=== PATIENT | male | born 1940 | race Caucasian/White ===

== ENCOUNTER 2018-01-09 19:38 | Inpatient (IN) | payer OTHER ==
[2018-01-09] MEDS ORDERED: VANCOMYCIN 1 GM/250 ML BAG ONE (20:54)
[2018-01-09] MEDS ORDERED: NA CHLORIDE 0.9% 1,000 ML ONE (20:54)
--- NOTE | 2018-01-09 21:16 | RAD REPORT ---
EXAM DESCRIPTION: RAD - Chest Single View - 01/09/2018 8:42 pm CLINICAL HISTORY: Fever, foot wound COMPARISON: April 2017 TECHNIQUE: AP portable chest image was obtained 2040 hours . FINDINGS: No focal mass or consolidation. Lung parenchyma is prominent but not clearly different. Va sculature is not clearly different. Heart size is upper normal and stable. No measurable pleural effu kristen and no pneumothorax. No gross bony abnormality seen. No acute aortic findings suspected. IMPRESSION: Mild chronic interstitial lung disease similar to comparison. No focal pneumonia identif iable.
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
[2018-01-09 21:43] LABS: Urine Blood NEGATIVE (NEG); Urine Glucose NEGATIVE (NEG); Urine Protein 1+ (NEG)
[2018-01-09 21:49] LABS: Urine Bacteria <20 /HPF (NONE SEEN); Urine Culture Reflex Order NOT NEEDED; Urine RBC <5 /HPF (NONE SEEN)
[2018-01-09 21:59] LABS: Absolute Lymphocytes (CBC) 0.7 K/uL (0.7-4.9); Absolute Monocytes 1.5 K/uL (0.1-1.3); Absolute Neutrophil 16.2 K/uL (1.8-8.0); Basophils % 0.1 % (0-1.3); Hematocrit 34.4 % (39.6-49.0); Lymphocytes % 3.9 % (15.3-44.8); MCH 29.4 pg (27.0-35.0); MCV 86.5 fL (80-100); MPV 10.3 fL (7.6-11.3); Monocytes % 8.3 % (3.3-12.3); RBC Red Blood Cell Count 3.98 M/uL (4.33-5.43)
[2018-01-09 22:04] LABS: Protime INR 1.07
[2018-01-09 22:10] LABS: Blood Morphology Comment NOT SEEN (NOT SEEN); Platelet Estimate ADEQ
[2018-01-09 22:18] LABS: ALT/SGPT 25 U/L (12-78); AST/SGOT 25 U/L (15-37); Albumin 2.9 g/dL (3.4-5.0); Alkaline Phosphatase 67 U/L (45-117); BUN Blood Urea Nitrogen 15 mg/dL (7-18); Bicarbonate 27 mmol/L (21-32); Bilirubin Direct 0.2 mg/dL (0-0.2); Bilirubin Total 0.8 mg/dL (0.2-1.0); CKMB Creatine Kinase MB 2.3 ng/mL (0.3-3.6); Creatine Phosphokinase 146 U/L (39-308); Glucose Level 116 mg/dL (74-106); Lipase 91 U/L (73-393); Potassium 3.5 mmol/L (3.5-5.1); Protein, Total 7.1 g/dL (6.4-8.2); Sodium Level 134 mmol/L (136-145); Troponin (Emerg Dept Use Only) 0.02 ng/mL (0.0-0.045)
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
[2018-01-09] MEDS ORDERED: ONDANSETRON 4 MG/2 ML VIAL IV PRN (23:37)
[2018-01-09] MEDS ORDERED: MORPHINE 2 MG/ML SYR IV PRN (23:37)
[2018-01-09] MEDS ORDERED: ACETAMINOPHEN 500 MG TAB PO PRN (23:37)
[2018-01-10] MEDS: Levofloxacin500mg IV 500 MG/100 ML BAG IV SCH (00:54)
[2018-01-10] MEDS: NA CHLORIDE 0.9% 1,000 ML IV SCH ×2 (00:55→12:11)
[2018-01-10] MEDS ORDERED: CLINDAMYCIN INJ 600 MG in NA CHLORIDE 0.9% 50 ML IV SCH (01:00)
[2018-01-10 05:26] LABS: Absolute Lymphocytes (CBC) 1.3 K/uL (0.7-4.9); Absolute Monocytes 1.6 K/uL (0.1-1.3); Absolute Neutrophil 12.9 K/uL (1.8-8.0); Basophils % 0.2 % (0-1.3); Eosinophils % 0.2 % (0-4.4); Hematocrit 32.7 % (39.6-49.0); Lymphocytes % 8.2 % (15.3-44.8); MCH 29.4 pg (27.0-35.0); MCV 87.9 fL (80-100); MPV 10.1 fL (7.6-11.3); Monocytes % 10.3 % (3.3-12.3); RBC Red Blood Cell Count 3.72 M/uL (4.33-5.43)
[2018-01-10 05:33] LABS: Protime INR 1.14
[2018-01-10 05:34] LABS: Urine Appearance CLEAR; Urine Bilirubin NEGATIVE (NEG); Urine Blood NEGATIVE (NEG); Urine Color YELLOW; Urine Glucose NEGATIVE (NEG); Urine Protein NEGATIVE (NEG); Urine Urobilinogen 0.2 mg/dL (0.2-1.0)
[2018-01-10 05:35] LABS: Urine Microscopic Reflex NO UMIC
[2018-01-10 05:45] LABS: ALT/SGPT 23 U/L (12-78); AST/SGOT 20 U/L (15-37); Albumin 2.7 g/dL (3.4-5.0); Alkaline Phosphatase 64 U/L (45-117); BUN Blood Urea Nitrogen 15 mg/dL (7-18); Bicarbonate 29 mmol/L (21-32); Bilirubin Total 0.8 mg/dL (0.2-1.0); Glucose Level 107 mg/dL (74-106); Magnesium 1.9 mg/dL (1.8-2.4); Phosphorus 3.1 mg/dL (2.5-4.9); Potassium 3.6 mmol/L (3.5-5.1); Protein, Total 6.6 g/dL (6.4-8.2); Sodium Level 135 mmol/L (136-145)
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
[2018-01-10] MEDS ORDERED: LINEZOLID 600 MG IVPB 600 MG/300 ML BAG IV SCH (09:00)
[2018-01-10] MEDS: EZETIMIBE 10 MG TAB PO SCH (09:27)
[2018-01-10] MEDS: NIACIN 500 MG SR TAB PO SCH (09:27)
[2018-01-10] MEDS: DOCUSATE NA 100 MG CAP PO SCH (09:27)
[2018-01-10] MEDS: VANCOMYCIN 1.25 GM in NA CHLORIDE 0.9% 250 ML IVPB SCH ×2 (12:07→21:59)
--- NOTE | 2018-01-10 13:31 | P.PN ---
Subjective Date of Service: 01/10/18 Chief Complaint: Osteomyelitis Patient seen and examined at bedside with RN. Chart reviewed. Case discussed with general surgery. Currently no plans for surgical procedure. Continue IV antibiotics awaiting infectious disease recommendations. Patient has no complaints to offer is well. Review of Systems 10-point ROS is otherwise unremarkable Physical Examination - Vital Signs Temperature: 98.5 F Blood Pressure: 112/53 Pulse: 83 Respirations: 20 Pulse Ox (%): 99 - Physical Exam General: Alert, In no apparent distress HEENT: Atraumatic, PERRLA, EOMI Neck: Supple, JVD not distended Respiratory: Clear to auscultation bilaterally, Normal air movement Cardiovascular: Regular rate/rhythm, Normal S1 S2 Gastrointestinal: Normal bowel sounds, No tenderness Musculoskeletal: Erythema, Tenderness, Warmth Integumentary: Diabetic ulcer (left foot dorsal area on the lateral side) Neurological: Normal speech, Normal tone, Normal affect Lymphatics: No axilla or inguinal lymphadenopathy - Studies Laboratory Data (last 24 hrs) 01/09/18 21:33: PT 12.6 H, INR 1.07, APTT 29.5 01/09/18 21:33: WBC 18.5 H, Hgb 11.7 L, Hct 34.4 L, Plt Count 158 01/09/18 21:33: Sodium 134 L, Potassium 3.5, BUN 15, Creatinine 0.80, Glucose 116 H, Total Bilirubin 0.8, AST 25, ALT 25, Alkaline Phosphatase 67, Lipase 91 Microbiology Data (last 24 hrs): 01/09/18 21:10 Wound - Left Foot Gram Stain - Final Medications List Reviewed: Yes Assessment And Plan - Plan Assessment and plan: 1. Osteomyelitis of the left foot with diabetic Ulcer noted -Wound culture pending -IV vanc and zosyn -ID consulted. Reccs awaiting at this time -Gen Surgery consulted. No surgical procedure at this time -Wound care consulted. 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 Hypoalbuminemia Dispo: Currently awaiting clinical improvement at this time. Will await for infectious disease consult. Continue on IV antibiotics and wound cultures. Discharge Plan: Home Plan to discharge in: 72 Hours - Code Status/Comfort Care Code Status Assessed: Yes Critical Care: No
--- NOTE | 2018-01-10 19:26 | EKG ---
Test Date: 2018-01-09 Test Time: 21:55:26 [employer] Operator: MG MEASUREMENT RESULTS: Intervals: Rate: 101 OH: 164 QRSD: 102 QT: 390 QTc: 505 [place]: P: 56 OH: 164 QRS: 80 T: 31 INTERPRETIVE STATEMENTS: Sinus tachycardia with frequent premature ventricular complexes Incomplete right bundle branch block Borderline ECG Compared to ECG 05/24/2017 18:44:01 Ventricular premature complex(es) now present Incomplete right bundle-branch block now present Sinus rhythm no longer present Prolonged QT interval no longer present Electronically Signed On 01-10-18 19:24:22 CDT by Glen Montelongo
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
[2018-01-10] MEDS ORDERED: D50W 25 GM/50 ML SYRINGE IV PRN (20:59)
[2018-01-10] MEDS ORDERED: GLUCAGON 1 MG/VIAL IM PRN (20:59)
[2018-01-10] MEDS: INSULIN -REGULAR HUMAN 50 UNIT/0.5 ML ML SQ SCH (21:00)
[2018-01-11] MEDS: Levofloxacin500mg IV 500 MG/100 ML BAG IV SCH ×2 (00:22→07:13)
[2018-01-11] MEDS: NA CHLORIDE 0.9% 1,000 ML IV SCH (00:22)
[2018-01-11 04:36] VITALS: O2SAT 99
[2018-01-11 04:39] VITALS: BMI 24.9
[2018-01-11] MEDS ORDERED: LEVOTHYROXINE SOD 0.1 MG TAB PO SCH (06:00)
[2018-01-11] MEDS ORDERED: PANTOPRAZOLE 40MG TABLET PO SCH (06:30)
[2018-01-11] MEDS: INSULIN -REGULAR HUMAN 50 UNIT/0.5 ML ML SQ SCH ×2 (07:30→11:30)
[2018-01-11] MEDS ORDERED: MEDIHONEY 44 ML TOPICAL TUBE TOP SCH (09:00)
[2018-01-11] MEDS: DOCUSATE NA 100 MG CAP PO SCH (09:36)
[2018-01-11] MEDS: EZETIMIBE 10 MG TAB PO SCH (09:36)
[2018-01-11] MEDS: NIACIN 500 MG SR TAB PO SCH (09:36)
[2018-01-11] MEDS: VANCOMYCIN 1.25 GM in NA CHLORIDE 0.9% 250 ML IVPB SCH (09:37)
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
[2018-01-11 14:17] VITALS: BP 156/81; TEMP 98.4
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
[2018-01-12] MEDS ORDERED: Levofloxacin500mg IV 500 MG/100 ML BAG IV SCH (08:00)
== END 2018-01-11 13:45 | disposition home or self-care (01) | DRG 603 ==
LOC: ER 19:38 → ERHOLD 22:47 → 2ND 01-10 00:05
PROVIDERS: ADMIT Hospitalist; ATTEND Hospitalist
DX: L03.116 Cellulitis of left lower limb (principal); E11.621 Type 2 diabetes mellitus with foot ulcer; I10 Essential (primary) hypertension; E03.9 Hypothyroidism, unspecified; E88.09 Other disorders of plasma-protein metabolism, not elsewhere classified; B95.4 Other streptococcus as the cause of diseases classified elsewhere
CPT/HCPCS: 36415; 71045; 80048; 80053; 80076; 80202; 81003; 81015; 82550; 82553; 82962; 83036; 83605; 83690; 83735; 84100; 84145; 84484; 85025; 85610; 85652; 85730; 86140; 87040; 87070; 87077; 87186; 87205; 93005; 96365; 96366; 99285; J3370; J7030

== ENCOUNTER 2019-08-27 10:23 | Inpatient (IN) | payer OTHER ==
[2019-08-27 11:11] LABS: Basophils % 0.3 % (0-1.3); Hematocrit 30.1 % (39.6-49.0); Lymphocytes % 12.9 % (15.3-44.8); MPV 9.5 fL (7.6-11.3); RBC Red Blood Cell Count 3.26 M/uL (4.33-5.43)
[2019-08-27 11:12] LABS: Protime INR 1.02
[2019-08-27 11:27] LABS: Albumin 2.4 g/dL (3.4-5.0); Bilirubin Direct 0.2 mg/dL (0-0.2); Bilirubin Total 0.5 mg/dL (0.2-1.0); Magnesium 2.1 mg/dL (1.8-2.4); Potassium 3.6 mmol/L (3.5-5.1); Protein, Total 6.4 g/dL (6.4-8.2); Troponin (Emerg Dept Use Only) 0.05 ng/mL (0.0-0.045)
--- NOTE | 2019-08-27 11:46 | RAD REPORT ---
EXAM DESCRIPTION: CT - CTHCSPWOC - 08/27/2019 11:30 am CLINICAL HISTORY: Trauma, head and neck injury. syncope, fall COMPARISON: No comparisons TECHNIQUE: Axial 5 mm thick images of the head were obtained. Axial 2 mm thick images of the cervical spine were obtained with sagittal and coronal reconstruction images generated and reviewed. All CT scans are performed using dose optimization technique as appropriate and may include automated exposure control or mA/KV adjustment according to patient size. FINDINGS: CT HEAD WITHOUT CONTRAST: No acute hemorrhage, hydrocephalus or extra-axial collection is identified.Mild generalized brain atr ophy.No areas of brain edema or midline shift. Moderate right frontal scalp hematoma and right PA orb ital soft tissue swelling. Mild nasal bone fracture also seen. Please refer to dedicated CT face exam ination for full details. The paranasal sinuses and mastoids are clear.The calvarium is intact. CT CERVICAL SPINE WITHOUT CONTRAST: No fracture or subluxation.Mild cervical degenerative changes.No prevertebral soft tissues swelling i s identified. IMPRESSION: No acute intracranial or cervical spine findings.
--- NOTE | 2019-08-27 11:48 | RAD REPORT ---
EXAM DESCRIPTION: CT - CTFB CLINICAL HISTORY: TRAUMA Fall, facial trauma pain and pain COMPARISON: No comparisons TECHNIQUE: Axial 2 mm thick images of the face were obtained with sagittal and coronal reconstructio n images. All CT scans are performed using dose optimization technique as appropriate and may include automated exposure control or mA/KV adjustment according to patient size. FINDINGS: Acute mildly angulated nasal bone fracture is seen. There is moderate soft tissue swelling evident.The mandible is intact. Significant right periorbital soft tissue swelling is present.Large right frontal scalp hematoma is s een. No vitreous abnormality detected. No additional facial fracture seen. The paranasal sinuses and mastoids are clear. IMPRESSION: Mildly angulated nasal bone fracture. Significant periorbital soft tissue swelling, greater on the right. Right frontal scalp hematoma.
--- NOTE | 2019-08-27 12:31 | RAD REPORT ---
EXAM DESCRIPTION: RAD - Chest Single View - 08/27/2019 11:49 am CLINICAL HISTORY: syncope Chest pain. COMPARISON: Chest Pa And Lat (2 Views) dated 02/28/2019; Chest Pa And Lat (2 Views) dated 11/09/2018; Chest Pa And Lat (2 Views) dated 07/20/2018; Chest Single View dated 01/09/2018 FINDINGS: Portable technique limits examination quality. The lungs are grossly clear. The heart is mildly prominent size. Old left posterior rib fracture. IMPRESSION: No acute intrathoracic process suspected.
--- NOTE | 2019-08-27 12:34 | RAD REPORT ---
EXAM DESCRIPTION: RAD - Pelvis - 08/27/2019 11:31 am CLINICAL HISTORY: fall COMPARISON: Hip Left 2 View dated 08/27/2019 FINDINGS: Bilateral hip osteoarthritis is present. No fracture, dislocation or AVN.
--- NOTE | 2019-08-27 12:36 | RAD REPORT ---
EXAM DESCRIPTION: RAD - Hip Left 2 View - 08/27/2019 11:31 am CLINICAL HISTORY: PAIN COMPARISON: No comparisons FINDINGS: Mild osteoarthritis affects the left hip. No fracture, dislocation or AVN.
[2019-08-27 12:41] LABS: Urine Blood 1+ (NEG); Urine Glucose NEGATIVE (NEG); Urine Protein 3+ (NEG); Urine Specific Gravity 1.025 (1.005-1.030)
[2019-08-27 12:58] LABS: Urine Amorphous Sediment 1+ /HPF (NONE SEEN); Urine Bacteria 20-50 /HPF (NONE SEEN); Urine Culture Reflex Order REFLEXED; Urine Mucus LIGHT /HPF (NONE SEEN); Urine RBC <5 /HPF (NONE SEEN); Urine Yeast MANY (NONE SEEN)
[2019-08-27 12:59] LABS: Urine Yeast with Hyphae PRESENT
[2019-08-27] MEDS ORDERED: NA CHLORIDE 0.9% 500 ML ONE (12:59)
--- NOTE | 2019-08-27 13:08 | EDPHYS ---
Physician Documentation [facility] Name: Jacob Vega Age: 79 yrs Sex: Male : 1940 Arrival Date: 08/27/2019 Time: 10:24 Bed 20 Private MD: ED Physician James Anne HPI: 08/26 10:51 This 79 yrs old Male presents to ER via Unassigned with complaints of Fall cp Injury, Head Injury With LOC-Adult. 10:54 The patient has experienced syncope, collapsed. Onset: The symptoms/episode cp began/occurred yesterday, approximately 4 episodes. Duration: The patient has had multiple episodes, that last an unknown period of time. Associated injury: Head/face: forehead, right eye, nose and left eye, contusion, swelling, tenderness, Left lower extremity: left hip, pain. Associated signs and symptoms: Pertinent negatives: abdominal pain, chest pain, diaphoresis, diarrhea, seizure, shortness of breath, vomiting, weakness. Historical: - Allergies: 10:40 Lincocin; aa5 - Home Meds: 10:40 levothyroxine 100 mcg oral tab once daily [Active]; Zetia 10 mg Oral tab 1 tab once aa5 daily [Active]; niacin 500 mg oral tab daily [Active]; stool softener twice daily [Active]; Miralax Oral PRN [Active]; midodrine 5 mg oral tab daily [Active]; 10:40 aspirin as needed [Active]; aa5 - PMHx: 10:40 Hypothyroidism; aa5 10:40 Hypotension; aa5 - PSHx: 10:40 Cholecystectomy; aa5 - Immunization history:: Adult Immunizations up to date, Pneumococcal vaccine is up to date, Flu vaccine is up to date. - Immunization history: Last tetanus immunization: unknown. - Social history:: Smoking status: Patient denies any tobacco usage or history of. ROS: 11:00 Constitutional: Negative for body aches, chills, fever, poor PO intake. cp 11:00 ENT: Negative for injury, pain, and discharge. cp 11:00 Eyes: Positive for pain, swelling, visual disturbance, of the left eye. 11:00 Respiratory: Negative for cough, shortness of breath, wheezing. 11:00 Abdomen/GI: Negative for abdominal pain, nausea, vomiting, and diarrhea. 11:00 MS/extremity: Positive for pain, left hip. 11:00 Skin: Negative for cellulitis, rash. 11:00 Neuro: Positive for syncope, Negative for altered mental status, dizziness, headache, weakness. 11:00 All other systems are negative. Exam: 10:59 ECG was reviewed by the Attending Physician. cp 11:03 Constitutional: The patient appears in no acute distress, alert, awake, cp non-diaphoretic, non-toxic, well developed, well nourished. 11:03 Head/face: Noted is ecchymosis, that is moderate, of the right eye and left eye, cp swelling, that is severe, of the right eye, Sinus tenderness, that is mild, is located over the right maxillary sinus. 11:03 Eyes: Periorbital structures: swelling, that is marked, on the , ecchymosis, that is moderate, bilaterally, Pupils: equal, round, and reactive to light and accomodation, Extraocular movements: intact throughout. 11:03 ENT: External ear(s): are unremarkable, Ear canal(s): are normal, clear, TM's: bulging, is not appreciated, bilaterally, erythema, is not appreciated, bilaterally, Nose: External nose: deformity is noted, swelling is noted, bleeding, is not appreciated, no septal hematoma is appreciated, Mouth: Lips: moist, Oral mucosa: pink and intact, moist, Posterior pharynx: is normal, airway is patent. 11:03 Neck: C-spine: C-collar placed in ED, vertebral tenderness, that is mild, appreciated at C6 and C7, crepitus, is not appreciated. 11:03 Chest/axilla: Inspection: normal, Palpation: is normal, no crepitus, no tenderness. 11:03 Cardiovascular: Rate: normal, Rhythm: regular, Edema: is not appreciated, JVD: is not appreciated. 11:03 Respiratory: the patient does not display signs of respiratory distress, Respirations: normal, no use of accessory muscles, no retractions, labored breathing, is not present, Breath sounds: are clear throughout, no decreased breath sounds, no stridor, no wheezing. 11:03 Abdomen/GI: Inspection: abdomen appears normal, Bowel sounds: active, all quadrants, Palpation: abdomen is soft and non-tender, in all quadrants. 11:03 Back: pain, is absent, ROM is normal. 11:03 Musculoskeletal/extremity: Exam is negative for decreased range of motion, deformity, injury. 11:03 Neuro: Orientation: to person, place \T\ time. Mentation: is normal, Cerebellar function: is grossly normal, Motor: moves all fours, strength is normal, Sensation: is normal. Vital Signs: 10:40 BP 163 / 92; Pulse 79; Resp 18 S; Temp 98.0(TE); Pulse Ox 99% on R/A; aa5 11:13 BP 157 / 87; Pulse 75; Resp 18 S; Pulse Ox 100% on R/A; ca1 12:03 BP 159 / 97; Pulse 74; Resp 18 S; Pulse Ox 100% on R/A; ca1 12:40 BP 161 / 96 Supine; Pulse 74; lt1 12:43 BP 104 / 63 Sitting; Pulse 79; lt1 13:30 BP 159 / 97; Pulse 76; Resp 15 S; Pulse Ox 100% on R/A; ca1 Guillaume Coma Score: 10:40 Eye Response: spontaneous(4). Verbal Response: oriented(5). Motor Response: obeys aa5 commands(6). Total: 15. Trauma Score (Adult): 10:40 Eye Response: spontaneous(1); Verbal Response: oriented(1); Motor Response: obeys aa5 commands(2); Systolic BP: > 89 mm Hg(4); Respiratory Rate: 10 to 29 per min(4); Guillaume Score: 15; Trauma Score: 12 MDM: 10:42 Patient medically screened. 11:00 Differential Diagnosis: cardiac arrhythmia, cerebrovascular accident, drug effect, GI cp bleed, vasovagal episode. 13:05 Data reviewed: vital signs, nurses notes, lab test result(s), EKG, radiologic studies, cp CT scan, plain films. 13:05 Test interpretation: by ED physician or midlevel provider: ECG. 13:10 Physician consultation: Rei Duran MD was contacted at 13:05, regarding admission, cp to the telemetry unit. patient's condition. 08/26 10:46 Order name: Basic Metabolic Panel; Complete Time: 11:56 08/26 11:57 Interpretation: Normal except: NA 132; CL 97; BUN 29; CRE 1.49; GFR 46; CA 7.7. 08/26 10:46 Order name: CBC with Diff; Complete Time: 11:56 cp 08/26 11:57 Interpretation: Normal except: RBC 3.26; HGB 10.5; HCT 30.1; MCV 92.3; MCH 32.2; SUSAN% cp 74.7; LYM% 12.9. / 10:46 Order name: LFT's; Complete Time: 11:56 cp 08/26 12:41 Interpretation: Normal except: AST 51; ALB 2.4; GLOB 4.0; A/G 0.6. cp 05/ 10:46 Order name: Magnesium; Complete Time: 11:56 cp 08/26 10:46 Order name: NT PRO-BNP; Complete Time: 11:56 cp 08/26 11:58 Interpretation: Abnormal: NT PRO-BNP 5592. cp 08/26 10:46 Order name: PT-INR; Complete Time: 11:56 cp 08/26 10:46 Order name: Troponin (emerg Dept Use Only); Complete Time: 11:56 cp 08/26 11:57 Interpretation: Abnormal: TROPED 0.05. cp 08/26 10:46 Order name: Urine Microscopic Only; Complete Time: 13:00 cp 08/26 13:00 Interpretation: Normal except: UWBC 10-20; UBACT 20-50. cp / 12:38 Order name: Urine Dipstick--Ancillary (enter results); Complete Time: 12:50 lt1 08/26 13:01 Order name: Urine Culture EDLA 08/26 13:35 Order name: Cortisol EDMS 08/26 13:35 Order name: Thyroid Stimulating Hormone EDLA 08/26 13:35 Order name: CBC with Automated Diff EDMS 08/26 13:35 Order name: CBC with Automated Diff EDMS 08/26 10:46 Order name: XRAY Chest (1 view); Complete Time: 12:40 cp / 12:40 Interpretation: Report review. cp 08/26 10:46 Order name: EKG; Complete Time: 10:47 cp 08/26 10:46 Order name: Cardiac monitoring; Complete Time: 11:32 cp / 10:46 Order name: EKG - Nurse/Tech; Complete Time: 11:32 cp 05/ 10:46 Order name: IV Saline Lock; Complete Time: 11:32 cp 08/26 10:46 Order name: Labs collected and sent; Complete Time: 11:32 cp 08/26 10:46 Order name: CT Facial Bones W/O Con; Complete Time: 11:56 cp 08/26 11:58 Interpretation: Report reviewed. cp 08/26 10:46 Order name: CT Head C Spine; Complete Time: 11:56 cp 08/26 10:46 Order name: XRAY Pelvis; Complete Time: 12:40 cp 08/26 12:40 Interpretation: Report reviewed. cp 08/26 11:23 Order name: Hip Left 2 View; Complete Time: 12:40 EDLA 08/26 12:40 Interpretation: Report reviewed. cp 08/26 13:35 Order name: CONS Pharmacy Consult EDLA 08/26 13:35 Order name: Regular EDLA 08/26 13:35 Order name: Comprehensive Metabolic Panel EDLA 08/26 13:35 Order name: Comprehensive Metabolic Panel EDLA 08/26 10:46 Order name: O2 Per Protocol; Complete Time: 11:32 cp 08/26 10:46 Order name: O2 Sat Monitoring; Complete Time: 11:32 cp 08/26 10:46 Order name: Urine Dipstick-Ancillary (obtain specimen); Complete Time: 12:36 cp 08/26 10:46 Order name: C-Collar; Complete Time: 11:32 cp 08/26 11:56 Order name: Orthostatics; Complete Time: 12:49 cp 08/26 11:56 Order name: Misc. Order: may remove c-collar; Complete Time: 12:40 cp EC:59 Rate is 78 beats/min. Rhythm is regular. KS interval is normal. QRS interval is cp prolonged at 142 msec. QT interval is normal. T waves are Inverted in leads III, V3, V4. Interpreted by me. Reviewed by me. Administered Medications: 12:56 Drug: NS 0.9% 500 ml Route: IV; Rate: 500 ml/hr; Site: right antecubital; ca1 13:38 Follow up: Response: No adverse reaction; IV Status: Completed infusion ca1 Disposition: 13:20 Chart complete. cp 15:06 Co-signature as Attending Physician, James Anne MD. rn Disposition: 08/27/19 13:08 Hospitalization ordered by Rei Duran for Observation. Preliminary diagnosis are Syncope and collapse, Urinary tract infection, site not specified, Fracture of nasal bones. - Bed requested for Telemetry/MedSurg (Inpatient). - Status is Observation. ls4 - Condition is Stable. - Problem is new. - Symptoms have improved. Signatures: Dispatcher [employer] EDMS James Anne MD MD rn Calderon, Audri RN RN aa5 Pantera Stallings PA PA cp Lori eSlf Lisa RN RN ls4 Lizzie Peñaloza RN RN ca1 Corrections: (The following items were deleted from the chart) 11:06 10:40 PMHx: Hypertension; aa5 aa5 11:23 10:47 Hip Right 2 View+RAD.RAD.BRZ ordered. EDMS EDMS 11:58 11:57 Normal except: NA 132; CL 97; BUN 29; CRE 1.49; GFR 46. cp cp 13:48 13:08 Hospitalization Ordered by Rei Duran MD for Observation. Preliminary eb diagnosis is Syncope and collapse; Urinary tract infection, site not specified; Fracture of nasal bones. Bed requested for Telemetry/MedSurg (Inpatient). Status is Observation. Condition is Stable. Problem is new. Symptoms have improved. cp 15:05 13:48 08/27/2019 13:08 Hospitalization Ordered by Rei Duran MD for Observation. ls4 Preliminary diagnosis is Syncope and collapse; Urinary tract infection, site not specified; Fracture of nasal bones. Bed requested for Telemetry/MedSurg (Inpatient). Status is Observation. Condition is Stable. Problem is new. Symptoms have improved. eb
--- NOTE | 2019-08-27 13:08 | ER ---
Nurse's Notes [facility] Name: Jacob Vega Age: 79 yrs Sex: Male : 1940 Arrival Date: 08/27/2019 Time: 10:24 Bed 20 Private MD: Diagnosis: Syncope and collapse;Urinary tract infection, site not specified;Fracture of nasal bones Presentation: 08/26 10:40 Chief complaint: Pt's son states "he passed out at least 4 times yesterday and I think aa5 it's because his blood pressure was changing because I took it lying down and it was like 130 (systolic) and then he sat up and it was registering but when I finally got it to register it was around 70/30". Pt's son states "he fell the first time but he didn't have any injuries the first time, two of the times I was able to catch him and put him down to the floor or the bed". Pt states "one of the times I fell I hit my head on the wall so hard that I made a hole in the wall". Pt denies taking anticoagulants, reports taking ASA as needed. Pt reports taking midodrine at 0700 and at 1000 today. Pt also reports having stress test on 08/17/19 and states "the stress test came out okay according to Dr. Montelongo". Pt c/o face pain and left hip pain. Denies feeling lightheaded or dizzy. Denies chest pain. 10:40 Acuity: LORE 2 aa5 10:40 Care prior to arrival: None. Mechanism of Injury: Fall from standing position. Trauma aa5 event details: Injury occurred in the [facility], Injury occurred: at home. Injury occurred: August 26, 2019. 10:40 Method Of Arrival: Wheelchair aa5 10:40 Coronavirus screen: Proceed with normal triage. Patient denies a cough. Patient denies aa5 shortness of breath or difficulty breathing. Patient denies measured and/or subjective temperature greater than 100.4F prior to today's visit. Patient denies travel on a cruise ship or to a country the [facility] currently lists as an affected area. Patient denies contact with known and/or suspected case of COVID-19. 10:40 Ebola Screen: Patient negative for fever greater than or equal to 101.5 degrees aa5 Fahrenheit, and additional compatible Ebola Virus Disease symptoms. Initial Sepsis Screen: Does the patient meet any 2 criteria? No. Patient's initial sepsis screen is negative. Does the patient have a suspected source of infection? No. Patient's initial sepsis screen is negative. Risk Assessment: Do you want to hurt yourself or someone else? Patient reports no desire to harm self or others. Onset of symptoms was August 26, 2019. Trauma Activation: Alert Physician: ED Physician; Name: ; Notified At: ; Arrived At: Physician: General Surgeon; Name: ; Notified At: ; Arrived At: Physician: Radiology; Name: ; Notified At: ; Arrived At: Physician: Respiratory; Name: ; Notified At: ; Arrived At: Physician: Lab; Name: ; Notified At: ; Arrived At: Historical: - Allergies: 10:40 Lincocin; aa5 - Home Meds: 10:40 levothyroxine 100 mcg oral tab once daily [Active]; Zetia 10 mg Oral tab 1 tab once aa5 daily [Active]; niacin 500 mg oral tab daily [Active]; stool softener twice daily [Active]; Miralax Oral PRN [Active]; midodrine 5 mg oral tab daily [Active]; 10:40 aspirin as needed [Active]; aa5 - PMHx: 10:40 Hypothyroidism; aa5 10:40 Hypotension; aa5 - PSHx: 10:40 Cholecystectomy; aa5 - Immunization history:: Adult Immunizations up to date, Pneumococcal vaccine is up to date, Flu vaccine is up to date. - Immunization history: Last tetanus immunization: unknown. - Social history:: Smoking status: Patient denies any tobacco usage or history of. Screenin:00 Abuse screen: Denies threats or abuse. Denies injuries from another. Nutritional ca1 screening: No deficits noted. Tuberculosis screening: No symptoms or risk factors identified. Fall Risk Fall in past 12 months (25 points). IV access (20 points). Total Sanders Fall Scale indicates Low Risk Score (25-44 pts). Fall prevention measures have been instituted. Side Rails Up X 2 Frequent Obs/Assesments occuring As available Patient and Family Educated on Fall Prevention Program and strategies. Primary Survey: 10:40 NO uncontrolled hemorrhage observed. A: The patient is alert. Airway: patent. aa5 Breathing/Chest: Chest inspection: symmetrical rise and fall of the chest. Circulation: Skin color: pink. Disability Alert. Exposure/Environment: All clothing and personal items were removed. There is no evidence of uncontrolled external bleeding. A warming method has been applied: A warm blanket has been provided to the patient. 12:02 Reassessment Airway Airway Patent Breathing/Chest Respiratory pattern Regular ca1 Respiratory effort Spontaneous Unlabored Chest inspection Symmetrical Circulation Heart rhythm Sinus rhythm Heart tones Present Pulses Palpable Color [place] Temperature Warm Dry Disability Alert. Secondary Survey: 10:40 HEENT: Face Other Swelling and bruising noted to beata periorbital area. aa5 Gastrointestinal: No deficits noted. : No deficits noted. Musculoskeletal: Reports pain in left hip. Assessment: 11:05 General: Appears in no apparent distress. comfortable, Behavior is calm, cooperative, ca1 appropriate for age. Pain: Complains of pain in face, L hip, L shoulder Pain currently is 2 out of 10 on a pain scale. Quality of pain is described as sore. Neuro: Level of Consciousness is awake, alert, obeys commands, Oriented to person, place, time, situation, Appropriate for age. Cardiovascular: Heart tones S1 S2 present Capillary refill < 3 seconds Patient's skin is warm and dry. Rhythm is sinus rhythm. Respiratory: Airway is patent Trachea midline Respiratory effort is even, unlabored, Respiratory pattern is regular, symmetrical, Breath sounds are clear bilaterally. GI: Abdomen is flat, non-distended, Bowel sounds present X 4 quads. Abd is soft and non tender X 4 quads. : No signs and/or symptoms were reported regarding the genitourinary system. EENT: Eyes swelling and bruising, dark purple around both eyes. . Derm: Skin is intact, is healthy with good turgor, Skin is pink, warm \\T\\ dry. Bruising that is bright red, on diaphragm. Musculoskeletal: Circulation, motion, and sensation intact. Capillary refill < 3 seconds. 11:11 Reassessment: X ray at bedside. ca1 12:03 Reassessment: Patient appears in no apparent distress at this time. No changes from ca1 previously documented assessment. Patient and/or family updated on plan of care and expected duration. Pain level reassessed. Patient is alert, oriented x 3, equal unlabored respirations, skin warm/dry/pink. 13:02 Reassessment: Patient appears in no apparent distress at this time. Patient and/or ca1 family updated on plan of care and expected duration. Pain level reassessed. Patient is alert, oriented x 3, equal unlabored respirations, skin warm/dry/pink. PT is on his Ipad. Pending Room assignment. Vital Signs: 10:40 BP 163 / 92; Pulse 79; Resp 18 S; Temp 98.0(TE); Pulse Ox 99% on R/A; aa5 11:13 BP 157 / 87; Pulse 75; Resp 18 S; Pulse Ox 100% on R/A; ca1 12:03 BP 159 / 97; Pulse 74; Resp 18 S; Pulse Ox 100% on R/A; ca1 12:40 BP 161 / 96 Supine; Pulse 74; lt1 12:43 BP 104 / 63 Sitting; Pulse 79; lt1 13:30 BP 159 / 97; Pulse 76; Resp 15 S; Pulse Ox 100% on R/A; ca1 Guillaume Coma Score: 10:40 Eye Response: spontaneous(4). Verbal Response: oriented(5). Motor Response: obeys aa5 commands(6). Total: 15. Trauma Score (Adult): 10:40 Eye Response: spontaneous(1); Verbal Response: oriented(1); Motor Response: obeys aa5 commands(2); Systolic BP: > 89 mm Hg(4); Respiratory Rate: 10 to 29 per min(4); Guillaume Score: 15; Trauma Score: 12 ED Course: 10:24 Patient arrived in ED. as 10:28 Pantera Stallings PA is PHCP. cp 10:28 James Anne MD is Attending Physician. cp 10:40 Arm band placed on Patient placed in an exam room, on a stretcher. aa5 10:46 Lizzie Peñaloza, SAMANTHA is Primary Nurse. ca1 10:56 Initial lab(s) drawn, by me, sent to lab. Inserted saline lock: 20 gauge in right aa5 forearm, using aseptic technique. Blood collected. 11:00 Patient has correct armband on for positive identification. Placed in gown. Bed in low ca1 position. Call light in reach. Side rails up X2. engine monitor on. Pulse ox on. NIBP on. Warm blanket given. 11:01 Rigid cervical collar applied and checked by physician. Patient maintains SpO2 ca1 saturation greater than 95% on room air. Thermoregulation: warm blanket given to patient. 11:04 Triage completed. aa5 11:29 CT Head C Spine In Process Unspecified. EDMS 11:30 CT Facial Bones W/O Con In Process Unspecified. EDMS 11:31 XRAY Pelvis In Process Unspecified. EDMS 11:32 Hip Left 2 View In Process Unspecified. EDMS 11:50 XRAY Chest (1 view) In Process Unspecified. EDMS 12:03 No provider procedures requiring assistance completed. ca1 12:36 Urine Microscopic Only Sent. lt1 13:07 Rei Duran MD is Hospitalizing Provider. cp 13:11 Patient admitted, IV remains in place. ca1 13:53 Report given to SAMANTHA Del Toro. ca1 14:52 Report given to JONES SINGH 2ND FLOOR. ls4 Administered Medications: 12:56 Drug: NS 0.9% 500 ml Route: IV; Rate: 500 ml/hr; Site: right antecubital; ca1 13:38 Follow up: Response: No adverse reaction; IV Status: Completed infusion ca1 Output: 12:46 Urine: 100ml (Voided); Total: 100ml. ca1 Outcome: 12:47 PT admittedPatient's length of stay extended due to ca1 13:08 Decision to Hospitalize by Provider. cp 14:53 Admitted to Med/surg accompanied by nurse, via stretcher, with chart, Report called to ls4 JONES SINGH 14:53 Condition: good 14:53 Instructed on the need for admit. 15:05 Patient left the ED. ls4 Signatures: Dispatcher [employer] Paula Saunders Audri, RN RN aa5 Pantera Stallings PA PA Katey Ambriz, RN RN ls4 Lizzie Peñaloza RN RN ca1 Lisa Cervantes lt1 Corrections: (The following items were deleted from the chart) 11:04 11:01 Nancy cervical collar applied and checked by physician. ca1 ca1 11:06 10:40 PMHx: Hypertension; aa5 aa5
--- NOTE | 2019-08-27 14:32 | P.HP ---
Certification for Inpatient With expected LOS: <2 Midnights Patient will require the following post-hospital care: None Practitioner: I am a practitioner with admitting privileges, knowledge of patient current condition, hospital course, and medical plan of care. Services: Services provided to patient in accordance with Admission requirements found in Title 42 Section 412.3 of the Code of Federal Regulations Patient History Date of Service: 08/27/19 (Hospitalist) Reason for admission: Syncope History of Present Illness: Patient is 79 years of age admitted with for syncopal episode where he loss consciousness apparently his blood pressure drops when he stands up this been going on for 6 month has become progressively worse he recently had a stress test done by Cardiology that was negative no history of any seizures or incontinence is perfectly alert when he comes around this time 0 every fell on his face is a bruise over his orbital region and fractured his nose as well denies any chest pain shortness of breath fever chills no weakness of his arms or legs no symptoms of stroke Allergies lincomycin [From Lincocin] Adverse Reaction (Mild, Verified 01/10/18 00:51) Hives/Rash Home Medications: Ezetimibe [Zetia*] 10 mg PO DAILY 05/24/17 Levothyroxine [Synthroid*] 100 mcg PO [id number] 05/24/17 Niacin [Niacin ER] 500 mg PO DAILY 05/24/17 Pantoprazole Sodium [Protonix] 20 mg PO DAILY 05/24/17 Docusate [Colace Cap*] 1 cap PO DAILY 01/10/18 levoFLOXacin [Levaquin] 500 mg PO DAILY #14 tab 01/11/18 - Past Medical/Surgical History Diabetic: No -: Hypertension- controlled -: hypothyroidism -: left leg sx x 7 -: cholecystectomy -: cyst removal from back. - Family History Mother -: Cancer Notes: ovarian cancer Father -: Hypertension Notes: alzheimers - Social History Alcohol use: Yes CD- Drugs: No Caffeine use: Yes Review of Systems 10-point ROS is otherwise unremarkable General: Weakness Physical Examination - Vital Signs Temperature: 98 F Blood Pressure: 163/92 Pulse: 79 Respirations: 18 Pulse Ox (%): 99 - Physical Exam General: Alert, In no apparent distress, Oriented x3 HEENT: Other (Is bruising over his orbits and the nasal lady) Neck: Supple Respiratory: Clear to auscultation bilaterally Cardiovascular: No edema, Regular rate/rhythm Gastrointestinal: Normal bowel sounds, Soft and benign Musculoskeletal: No clubbing, No swelling Integumentary: No rashes Neurological: Normal speech, Normal strength at 5/5 x4 extr, Cranial nerves 3-12 intact - Studies Laboratory Data (last 24 hrs) 08/27/19 10:50: PT 12.0, INR 1.02 08/27/19 10:50: WBC 8.0, Hgb 10.5 L, Hct 30.1 L, Plt Count 175 08/27/19 10:50: Sodium 132 L, Potassium 3.6, BUN 29 H, Creatinine 1.49 H, Glucose 99, Magnesium 2.1, Total Bilirubin 0.5, AST 51 H, ALT 30, Alkaline Phosphatase 76 Assessment and Plan - Problems (Diagnosis) (1) Syncope Current Visit: Yes Status: Acute Plan: Patient is 79 years of age admitted with syncope this is recurrent he has done it 4 times is he notices 6 months ago is been progressive apparently he has not sudden drop in his blood pressure on standing mildly anemic acute renal insufficiency may be volume depleted patient has a normal white count doubt urinary tract infection although he has persistent incontinence patient seems to have a nasal dislocation otherwise is no orbital fractures will check his serum cortisol level tsh level Consul neurology telemetry monitoring Qualifiers: Syncope type: unspecified Qualified Code(s): R55 - Syncope and collapse - Advance Directives Does patient have a Living Will: Yes Does patient have a Durable POA for Healthcare: Yes
[2019-08-27 15:24] LABS: Thyroid Stimulating Hormone 5.19 uIU/mL (0.360-3.740)
[2019-08-27] MEDS: NA CHLORIDE 0.9% 1,000 ML IV SCH ×3 (15:26→23:52)
[2019-08-27 15:29] VITALS: BMI 22.1
[2019-08-27] MEDS ORDERED: ACETAMINOPHEN 500 MG TAB PO PRN (17:36)
[2019-08-28 05:01] LABS: Absolute Lymphocytes (CBC) 1.3 K/uL (0.7-4.9); Basophils % 0.3 % (0-1.3); Hematocrit 25.9 % (39.6-49.0); Lymphocytes % 17.9 % (15.3-44.8); MPV 9.5 fL (7.6-11.3); RBC Red Blood Cell Count 2.83 M/uL (4.33-5.43)
[2019-08-28 05:16] LABS: Albumin 2.1 g/dL (3.4-5.0); Bilirubin Total 0.4 mg/dL (0.2-1.0); Potassium 3.3 mmol/L (3.5-5.1); Protein, Total 5.4 g/dL (6.4-8.2)
[2019-08-28] MEDS: NA CHLORIDE 0.9% 1,000 ML IV SCH ×2 (07:24→16:03)
--- NOTE | 2019-08-28 10:51 | EKG ---
Test Date: 2019-08-27 Test Time: 10:57:22 Hospitality Aide: CLARKE MEASUREMENT RESULTS: Intervals: Rate: 78 WY: 186 QRSD: 142 QT: 422 QTc: 481 [place]: P: 59 W[place]: 186 QRS: 84 T: 16 INTERPRETIVE STATEMENTS: Normal sinus rhythm Right bundle branch block Abnormal ECG Compared to ECG 11/09/2018 12:15:49 Atrial premature complex(es) no longer present Electronically Signed On 08-28-19 10:49:14 CDT by Glen Montelongo
--- NOTE | 2019-08-28 11:47 | P.PN ---
Subjective Date of Service: 08/28/19 Chief Complaint: Syncope facial bruising in pain No change she has still significant decline in his blood pressure on standing the some facial discomfort Review of Systems General: Weakness Respiratory: Shortness of Breath Physical Examination - Vital Signs Temperature: 98.7 F Blood Pressure: 119/60 Pulse: 72 Respirations: 15 Pulse Ox (%): 100 - Physical Exam General: Alert, Oriented x3 HEENT: Other (Severe facial bruising with periorbital edema) Respiratory: Clear to auscultation bilaterally Cardiovascular: No edema, Normal S1 S2 Assessment & Plan - Problems (Diagnosis) (1) Syncope Current Visit: Yes Status: Acute Plan: Patient admitted with syncopal attack presume secondary to severe orthostatic hypotension he still has orthostatic hypertension continue with volume depletion at and Florinef increase midodrine to 10 mg 3 times a day serum cortisol level is pending Dc age level is borderline will consult Cardiology and Neurology patient has severe autonomic orthostatics hypotension will also add the sodium chloride tablets,othe roption is droxidopa Qualifiers: Syncope type: unspecified Qualified Code(s): R55 - Syncope and collapse
[2019-08-28] MEDS: SODIUM CHLORIDE 1 GM TAB PO SCH ×2 (12:16→16:03)
[2019-08-28] MEDS: HYDROCODONE/APAP 5/325 MG TAB PO PRN ×2 (12:16→21:21)
[2019-08-28] MEDS: MIDODRINE HCL 5 MG TABLET PO SCH ×2 (12:17→21:21)
[2019-08-28] MEDS: FLUDROCORTISONE 0.1 MG TAB PO SCH (12:22)
--- NOTE | 2019-08-28 23:40 | CON ---
Reason For Consultation: Consultation called because of syncope. History Of Present Illness: Mr. Vega is a 79-year-old right-handed patient with a long his tory of autonomic dysfunction that has been progressive over several years. Review of the chart does reveal at least multiple admissions. Three years ago, he was seeing Dr. Mejia after a near syncopal episode. His blood pressures may drop as he stands from a seated position or while using the bathroo m and he has a tendency to fall, but more recently in the last 6 months, it has come to the point tony t he is fallen more than 1 occasion. First admission on August 26 came after he passed out, hitting hi s face with a fracture of his nose and the appearance of swelling beneath both eyes with raccoon eyes after hitting his face. He said he did not have enough warning as he passed out. [facility] has head and cervical spine CT scans identified mild nasal bone fracture, moderate right frontal s calp hematoma. Soft tissue swelling in the right suborbital regions. Cervical spine showed no fract ure or subluxation. There is mild cervical degeneration. No soft tissue swelling in the cervical re gion. Facial bone CT scan did identify the mild angulated nasal bone fracture and significant perior bital soft tissue swelling greater on the right and a right frontal scalp hematoma. Hip x-ray showed mild osteoarthritis and no fracture or avascular necrosis. A pelvic x-ray showed bilateral hip oste oarthritis, but no fractures or avascular necrosis. Since admission, his medications were adjusted w ith midodrine going from 10 mg twice a day to 3 times a day. In retrospect, the patient said he was prescribed salt tablets several months ago, but stopped the medications. He also received Florinef i n the past. Since hospitalization, his blood pressures have ranged from 104 to 184 over 63 to 97. Pulse remained in the 70s. The patient has not had a syncopal episode since hospitalization. Laboratory Studies: His complete blood count with differential essentially showing anemia, likely of chronic disease. Hemoglobin of 10.5 and white blood cell count was normal. His electrolyte panel s howed a sodium low to 132, chloride low to 97, BUN elevated at 29, creatinine 1.49 consistent with de hydration. TSH elevated at 5.19. Liver function studies show slightly elevated AST of 51, ALT shaq l at 30, alkaline phosphate is normal at 76, calcium low at 7.7. His urinalysis showed 20-50 bacteri a, 10-20 white blood cell count, 1+ blood, 3+ protein and cultures were negative, less than 10,000 co lony-forming units. Past Medical History: Mr. Vega has hypertension, hypothyroidism, and [id number] autonomic dy sfunction. Past Surgical History: Cholecystectomy, cyst removal from back and left leg surgery on multiple occa sions, 7 times. Medications: At home; Zetia 10 mg daily, Synthroid 100 mcg daily, niacin 500 mg daily, Protonix 20 m g daily, Colace 1 daily, and Levaquin 500 mg daily. Family History: Ovarian cancer in mother and hypertension. Alzheimer disease in father. Social History: Occasional alcohol and caffeine use. Review of Systems: Patient reports orthostatic hypotension symptoms and multiple near syncopal episodes. No cough or po sttussive syncope and no fevers or chills, myalgias or arthralgias. No rash. No psychiatric issues. No other positives on a 10-point systems review unless mentioned above. Physical Examination: Vital Signs: Currently blood pressure 121/63, pulse 76, respiratory rate 16 to 18, temperature 98.9, oxygen saturation 100% on room air. General: Mr. Vega is resting in bed with significant swelling beneath and around both eyes. Slight deviation of the nose from his nasal fracture and hyperemic appearance with raccoon eyes bilaterally, otherwise his cranial nerve examination is intact. He does have full range of motion in the cervica l region. Chest: Clear. Abdomen: Soft. Extremities: Show no significant edema or cyanosis. Neurologically: He is alert and oriented to situation, place, and person. He follows all commands a ppropriately. He has no focal cranial nerve deficits, just swelling in the periorbital regions bilat erally. Motor examination is symmetric in the upper and lower extremities. Sensation stocking-glove loss, light touch temperature. Reflexes trace in the upper and lower extremities. Coordination int act in the upper and lower extremities. With gait, he will require a gait belt and he ambulated with physical therapy once he is hydrated. Assessment: Mr. Vega is a 79-year-old patient with advanced autonomic dysfunction that is dysautonom ia and will require a combination of treatment to help reduce risk of falling. Plan: 1.Patient should have bilateral PHUONG hose at all times. 2.Increase salt intake 2 g twice daily. 3.Midodrine 10 mg 3 times daily. 4.Florinef 0.1 mg twice daily. 5.Eight to ten glasses of water daily. 6.Patient was instructed to sit up very slowly from a lying position and always use a walker when am bulating and keep his head down towards the level of the heart if he has first inkling of syncope. 7.He may hold off antihypertensive medications. 8.His hypothyroidism should be addressed perhaps with adjustment of Synthroid. 9.He may follow up in Dr. Cantu's clinic 1 month later. SACHI/MONICA Voice ID: [id number] Report ID: [id number]
[2019-08-29] MEDS: NA CHLORIDE 0.9% 1,000 ML IV SCH ×3 (02:11→20:28)
[2019-08-29 04:27] LABS: Hematocrit 25.3 % (39.6-49.0); MPV 9.1 fL (7.6-11.3); RBC Red Blood Cell Count 2.73 M/uL (4.33-5.43)
[2019-08-29 04:49] LABS: Bilirubin Total 0.4 mg/dL (0.2-1.0); Potassium 3.6 mmol/L (3.5-5.1); Protein, Total 5.6 g/dL (6.4-8.2)
[2019-08-29] MEDS: LEVOTHYROXINE SOD 0.1 MG TAB PO SCH (05:25)
--- NOTE | 2019-08-29 07:50 | PN ---
Date of Progress Note: 08/29/2019 Mr. Vega is 79, was admitted with orthostatic hypotension and syncope. He has had a negative cardiac workup including echos, carotid Doppler, CT of his head. He does have periorbital hematoma bilatera lly from his fall. Yesterday, he was started on midodrine 10 mg 3 times a day. He was started on Fl orinef, salt tablets 1 p.o. b.i.d. He was hydrated. Today, he is still having some dizzy spells, bu t is feeling well overall. He is in sinus rhythm. There is no evidence of bradycardia or pauses or sick sinus syndrome. Again, his main issue is orthostatic hypotension, for which he needs to continu e the above medication. He can go home whenever it is okay with Dr. Duran. If his symptoms persi st, I am going to have him see fruit press operator in [place] for possible further studies. MALINI/MONICA Voice ID: [id number] Report ID: [id number]
[2019-08-29] MEDS: SODIUM CHLORIDE 1 GM TAB PO SCH ×2 (08:00→16:17)
--- NOTE | 2019-08-29 08:08 | P.PN ---
Subjective Date of Service: 08/29/19 Chief Complaint: Orthostatic hypotension Patient feels better is improving there is no longer significant drop in his blood pressure facial bruises and hematoma are also improving right eye also looks better Review of Systems Unremarkable General: Weakness Integumentary: Other (Patient is a cyst on the left posterior chest) Neurological: Weakness Physical Examination - Vital Signs Temperature: 98.8 F Blood Pressure: 135/64 Pulse: 81 Respirations: 18 Pulse Ox (%): 94 - Physical Exam General: Alert, In no apparent distress, Oriented x3, Cachectic HEENT: Other (Is facial bruising ruddy orbital hematoma has improved he could not see from his right eye) Neck: Supple Respiratory: Clear to auscultation bilaterally Cardiovascular: No edema, Normal S1 S2 Gastrointestinal: Normal bowel sounds, Soft and benign Assessment & Plan - Problems (Diagnosis) (1) Syncope Current Visit: Yes Status: Acute Plan: No further episodes Qualifiers: Syncope type: unspecified Qualified Code(s): R55 - Syncope and collapse (2) Orthostatic hypotension Current Visit: Yes Status: Acute Plan: Patient has fluid orthostatics hypotension was seen by Cardiology and Neurology medications optimize he seems to be improving will follow recommendation as per Neurology possible discharge today serum cortisol level is low may have adrenal insufficiency is well will plan to repeat cortisol level cosyntropin stimulation test patient is also mildly anemic Discharge Plan: Home Plan to discharge in: 24 Hours
[2019-08-29] MEDS: NIACIN 500 MG SR TAB PO SCH (08:21)
--- NOTE | 2019-08-29 08:21 | CON ---
Date of Consultation: 08/28/2019 Patient was admitted on 08/27/[address] Duran. I saw the patient on 08/28/2019. Reason For Consultation: Syncope. History Of Present Illness: Mr. Vega is a 79-year-old white male. He is known to me from multiple o ffice visits and hospital admissions for syncope. The syncope is almost always related to orthostati c hypotension. This is his third or fourth episode where he actually fell straight on his face. At this time, he has bilateral ocular hematomas. Denies any chest pain. He denied any shortness of abbey ath, PND, orthopnea, pedal edema, or palpitation. He just gets very dizzy, lightheaded and passes ou t when he stands up. We have dealt with this before. He is not taking any antihypertensive. He galeana s not take any medication for his prostate. He is on midodrine 5 mg b.i.d. at home. He is asymptoma tic now, but continues to be orthostatic when he stands up. Physical Therapy was working on him toda y, and by the time he came back to his bed, his blood pressure was 60/40 and he was very dizzy and li ghtheaded. Past Medical History: Positive for hypothyroidism and dyslipidemia. Medications: At home include Zetia, midodrine, and Synthroid. Allergies: TO LINCOMYCIN. Review of Systems: Negative. Social History: Negative. Family History: Negative. Physical Examination: General: He is pleasant as usual. Vital Signs: Stable. He is in a sinus rhythm. HEENT: Positive for bilateral periorbital hematoma. Neck: Supple without any bruit, lymphadenopathy, JVD, or thyromegaly. Chest: Clear to auscultation and percussion. Cardiac: Revealed irregular rhythm and rate. No murmurs, gallops, or rubs. Abdomen: Benign. Extremities: Revealed no clubbing, cyanosis, or edema. Diagnostic Data: Creatinine was 1.27. Hemoglobin was 10.5. Potassium 3.6, magnesium 2.1. EKG was nonspecific. His BNP was 5592. His troponin was 0.05. Chest x-ray was unremarkable. EKG was unrem arkable. He has had previous normal echo with a normal carotid Doppler, normal CT of his head. Impression And Plan: Syncope secondary to orthostatic hypotension. Dr. Duran admitted him. Neur ology is involved. He has had a previous cardiac workup in the past that has been negative. I think we need to increase his midodrine to 10 mg 3 times a day. We should start Florinef, salt tablets. Continue hydration. Hopefully, he will improve and go home in the next day or so. I do not recommen d any cardiac workup on him at this time. His other problems including dyslipidemia are controlled o n Zetia and hypothyroidism on Synthroid. NB/MODL Voice ID: [id number] Report ID: [id number]
[2019-08-29] MEDS: DOCUSATE NA 100 MG CAP PO SCH (08:22)
[2019-08-29] MEDS: MIDODRINE HCL 5 MG TABLET PO SCH ×3 (08:32→20:27)
[2019-08-29] MEDS: FLUDROCORTISONE 0.1 MG TAB PO SCH (11:41)
--- NOTE | 2019-08-29 18:03 | CON ---
Date of Consultation: 08/29/2019 Reason For Consultation: Left back/scapular soft tissue mass. Brief History Of Present Illness: The patient is a 79-year-old male, admitted with syncopa l episode after losing consciousness after a drop in blood pressure. He has had multiple episodes be fore over the past 6 months, but got progressively worse and he has had a stress test done with [facility] jerad, by report, which was negative. He essentially fell down while being at home onto his face and fractured his nose. He denied any other symptomatology or evidence of stroke. There was no lateral izing effect. This occurred approximately on 08/25 or 08/26, 2 to 3 days ago. With respect to the m ass on his back, he states he does not know how long it has been there, but it has been there for loraine te a long extended period of time. He has had one before in the past, which was excised over the [facility] area years ago, but he cannot recall the exact details of that either. Past Medical History: Significant for hypertension, hypothyroidism. He has had 7 surgeries on his l eft leg. Past Surgical History: Includes additionally cholecystectomy, cyst removed from the back at the same area of the left upper back which was a sebaceous cyst he states. Allergies: TO LINCOMYCIN. Home Medications: Include Zetia, Synthroid, niacin, Protonix, Colace, and recently Levaquin. Family History: His father had hypertension and seizures. Social History: He denies smoking. Drinks alcohol recreationally. Review of Systems: A 10-point review of systems other than HPI, denies. Physical Examination: Vital Signs: At the time of my examination, his BMI is 22.2. Blood pressure 135/64, heart rate is 8 1, respiratory rate 18, temperature 98.8. General: He is awake, alert, and oriented. Psychiatric: Appropriately conversive. HEENT: He has significant swelling and bruising to his face bilaterally with bruising in bilateral e yes and ecchymotic appearance to bilateral eyes. He additionally has a swelling over his nose and ex tending all the way to his philtrum. There is no otorrhea or discharge from the nasal passages or or opharynx. His oropharynx is clear otherwise. Mucous membranes are moist. Neck: Supple. No JVD. Chest: Normal expansion and excursion. Cardiovascular: Regular rate and rhythm. Pulmonary: Clear to auscultation bilaterally. Abdomen: Soft, nontender. Back: Focused examination of his back shows a large, approximately 15 x 11 cm firm mass of the left upper back in the scapular area where there is a previous overlying incision in this area, which is w ell healed. Laboratory Data: Reveals a white blood cell count of 8.3, hemoglobin is 8.5, hematocrit 25.3, platel et count is 152. His sodium is 133, potassium 3.6, chloride 101, carbon dioxide 26, BUN is 29, creat inine 1.2, glucose is 93, total bilirubin is 0.4, AST is 37, ALT is 25. His alkaline phosphatase is 63. His cortisol was 16.25. TSH 5.1, free T4 is 1.32. He had imaging performed which included a fa cial CT on 08/26, officially read as mild angulated nasal bone fracture, significant periorbital soft tissue swelling, greater on the right, and a right frontal scalp hematoma. He had a CT head and C-s pine also on the same date, officially read as no acute intracranial or cervical spine findings. He had a hip x-ray, officially read as mild osteoarthritis, affects the left hip. No fracture, dislocat ion, or avascular necrosis. Pelvic x-ray on the same date, officially read as bilateral hip osteoart hritis is present. No fracture, dislocation, or avascular necrosis. Assessment And Plan: This is a 79-year-old male with multiple medical problems. 1.A recent syncopal episode. Continue medical management and cardiovascular management. 2.Patient likely has a recurrence of his sebaceous cyst. No infectious etiology is present at this time. Given the current coronavirus disease situation, I recommend optimal medical management and th en scheduling this as an excision when appropriate timing is allowed. Thank you for this interesting consult. ACE/MNOICA Voice ID: [id number] Report ID: [id number]
[2019-08-30] MEDS: LEVOTHYROXINE SOD 0.1 MG TAB PO SCH (06:17)
[2019-08-30] MEDS: NA CHLORIDE 0.9% 1,000 ML IV SCH (06:19)
--- NOTE | 2019-08-30 08:30 | P.DS ---
Admission Date: 08/27/19 Discharge Date: 08/30/19 Disposition: ROUTINE DISCHARGE Discharge Condition: FAIR Reason for Admission: Orthostatic hypotension - Problems (1) Syncope Current Visit: Yes Status: Acute Qualifiers: Syncope type: unspecified Qualified Code(s): R55 - Syncope and collapse (2) Orthostatic hypotension Current Visit: Yes Status: Acute Brief History of Present Illness: Patient is 79 years of age admitted with for syncopal episode where he loss consciousness apparently his blood pressure drops when he stands up this been going on for 6 month has become progressively worse he recently had a stress test done by Cardiology that was negative no history of any seizures or incontinence is perfectly alert when he comes around this time 0 every fell on his face is a bruise over his orbital region and fractured his nose as well denies any chest pain shortness of breath fever chills no weakness of his arms or legs no symptoms of stroke Hospital Course: Patient is 79 years of age with a history of severe orthostatic hypotension admitted with a fall and facial bruising in addition to a fractured nose he had significant orthostatic hypotension seen by neurology and cardiology medications adjusted midodrine increase Florinef added salt tablets also added at the time of discharge he was alert oriented responsive cooperative still having some orthostatics changes serum cortisol level was satisfactory to follow-up with neurology Vital Signs/Physical Exam: Temp Pulse Resp BP Pulse Ox 98.2 F 79 16 150/72 H 94 08/30/19 04:00 08/30/19 04:00 08/30/19 04:00 08/30/19 04:00 08/30/19 04:00 General: Alert, In no apparent distress, Oriented x3 HEENT: Other (Facial bruising has improved right eye is more visible a) Neck: No Thyromegaly Cardiovascular: No edema, Regular rate/rhythm, Normal S1 S2 Gastrointestinal: Normal bowel sounds, Soft and benign Laboratory Data at Discharge: WBC 8.3 K/uL (4.3-10.9) 08/29/19 03:39 Hgb 8.5 g/dL (13.6-17.9) L 08/29/19 03:39 Hct 25.3 % (39.6-49.0) L 08/29/19 03:39 Plt Count 152 K/uL (152-406) 08/29/19 03:39 PT 12.0 SECONDS (9.5-12.5) 08/27/19 10:50 INR 1.02 08/27/19 10:50 Sodium 133 mmol/L (136-145) L 08/29/19 03:39 Potassium 3.6 mmol/L (3.5-5.1) 08/29/19 03:39 BUN 29 mg/dL (7-18) H 08/29/19 03:39 Creatinine 1.25 mg/dL (0.55-1.3) 08/29/19 03:39 Glucose 93 mg/dL (74-106) 08/29/19 03:39 Magnesium 2.1 mg/dL (1.8-2.4) 08/27/19 10:50 Total Bilirubin 0.4 mg/dL (0.2-1.0) 08/29/19 03:39 AST 37 U/L (15-37) 08/29/19 03:39 ALT 25 U/L (12-78) 08/29/19 03:39 Alkaline Phosphatase 63 U/L (45-117) 08/29/19 03:39 Home Medications: Ezetimibe [Zetia*] 10 mg PO DAILY 05/24/17 Levothyroxine [Synthroid*] 100 mcg PO [id number] 05/24/17 Niacin [Niacin ER] 500 mg PO DAILY 05/24/17 Docusate [Colace Cap*] 1 cap PO DAILY 01/10/18 Multivitamin [Multivitamins] 1 tab PO BID 08/27/19 Fludrocortisone [Florinef] 0.1 mg PO DAILY 90 Days #90 tab 08/29/19 Midodrine HCl 10 mg PO TID #90 tablet 08/29/19 Sodium Chloride Tab [Sodium Chloride*] 2 gm PO BIDWM #60 tab 08/29/19 New Medications: Fludrocortisone [Florinef] 0.1 mg PO DAILY 90 Days #90 tab Midodrine HCl 10 mg PO TID #90 tablet Sodium Chloride Tab [Sodium Chloride*] 2 gm PO BIDWM #60 tab Patient Discharge Instructions: Patient should have bilateral PHUONG hose at all times. Please make sure patient has hospice care setup including a wheelchair and a walker. 2.Increase salt intake 2 g twice daily. 3.Midodrine 10 mg 3 times daily. 4.Florinef 0.1 mg twice daily. 5.Eight to ten glasses of water daily. 6.Patient was instructed to sit up very slowly from a lying position and always use a walker when ambulating and keep his head down towards the level of the heart if he has first inkling of syncope. 7.He may follow up in Dr. Cantu's clinic 1 month later. Diet: Regular Activity: Fall precautions
[2019-08-30] MEDS: MIDODRINE HCL 5 MG TABLET PO SCH (09:02)
[2019-08-30] MEDS: SODIUM CHLORIDE 1 GM TAB PO SCH (09:03)
[2019-08-30] MEDS: NIACIN 500 MG SR TAB PO SCH (09:03)
[2019-08-30] MEDS: DOCUSATE NA 100 MG CAP PO SCH (09:05)
[2019-08-30 10:24] VITALS: O2SAT 92
[2019-08-30] MEDS: FLUDROCORTISONE 0.1 MG TAB PO SCH (12:27)
[2019-08-30 14:26] VITALS: BP 150/73; TEMP 99.1
== END 2019-08-30 13:19 | disposition home health service (06) | DRG 312 ==
LOC: ER 10:23 → SUPCPDRO 10:23 → ERHOLD 13:32 → 2ND 14:47
PROVIDERS: ADMIT Internal Medicine Sleep Medicine; ATTEND Internal Medicine Sleep Medicine
DX: I95.1 Orthostatic hypotension (principal); R64 Cachexia; Z88.1 Allergy status to other antibiotic agents; Z79.890 Hormone replacement therapy; Z79.899 Other long term (current) drug therapy; I10 Essential (primary) hypertension; Z90.49 Acquired absence of other specified parts of digestive tract; E03.9 Hypothyroidism, unspecified; D64.9 Anemia, unspecified; N28.9 Disorder of kidney and ureter, unspecified; W18.30XA Fall on same level, unspecified, initial encounter; E86.0 Dehydration; H05.233 Hemorrhage of bilateral orbit; S02.2XXA Fracture of nasal bones, initial encounter for closed fracture; E78.5 Hyperlipidemia, unspecified; Z68.22 Body mass index [BMI] 22.0-22.9, adult
CPT/HCPCS: 36415; 70450; 70486; 71045; 72125; 72170; 76377; 80048; 80053; 80076; 81003; 81015; 82533; 83735; 83880; 84439; 84443; 84484; 85025; 85027; 85610; 87086; 87088; 93005; 94760; 96360; 97110; 97112; 97116; 97161; 97530; 97542; 99285; J7030; J7040

== ENCOUNTER 2019-11-01 11:34 | Emergency (ER) | payer OTHER ==
[2019-11-01 12:39] LABS: Potassium 2.9 mmol/L (3.5-5.1)
[2019-11-01] MEDS ORDERED: POTASSIUM 25 MEQ EFFERV TAB ONE (12:52)
[2019-11-01] MEDS ORDERED: KCL 20 MEQ/100 mL IVPB 20 MEQ/100 ML BAG IV ONE (12:52)
[2019-11-01 15:54] LABS: Potassium 3.4 mmol/L (3.5-5.1)
--- NOTE | 2019-11-01 16:29 | EDPHYS ---
Physician Documentation [facility] Name: Jacob Vega Age: 79 yrs Sex: Male : 1940 Arrival Date: 11/01/2019 Time: 11:36 Bed 20 Private MD: Ammy Chew ED Physician Julio C Burnette HPI: 10/31 16:26 This 79 yrs old Male presents to ER via Wheelchair with complaints of snw Abnormal Lab Results. 16:26 Onset: The symptoms/episode began/occurred acutely. Associated signs and symptoms: The snw patient has no apparent associated signs or symptoms. Modifying factors:. It is unknown whether or not the patient has had similar symptoms in the past. The patient has been recently seen by a physician: Dr. Armijo, Pt was called to come to ED for abnormal potassium level. Historical: - Allergies: 12:02 Lincocin; ss - PMHx: 12:02 hypotension; Hypothyroidism; ss - PSHx: 12:02 Cholecystectomy; ss - Immunization history:: Adult Immunizations up to date. - Social history:: Smoking status: Patient denies any tobacco usage or history of. ROS: 16:26 Constitutional: Negative for fever, chills, and weight loss, Eyes: Negative for injury, snw pain, redness, and discharge, ENT: Negative for injury, pain, and discharge, Neck: Negative for injury, pain, and swelling, Cardiovascular: Negative for chest pain, palpitations, and edema, Respiratory: Negative for shortness of breath, cough, wheezing, and pleuritic chest pain, Abdomen/GI: Negative for abdominal pain, nausea, vomiting, diarrhea, and constipation, Back: Negative for injury and pain, : Negative for injury, bleeding, discharge, and swelling, MS/Extremity: Negative for injury and deformity, Skin: Negative for injury, rash, and discoloration, Neuro: Negative for headache, weakness, numbness, tingling, and seizure, Psych: Negative for depression, anxiety, suicide ideation, homicidal ideation, and hallucinations. Exam: 16:26 Constitutional: This is a well developed, well nourished patient who is awake, alert, snw and in no acute distress. Head/Face: Normocephalic, atraumatic. Eyes: Pupils equal round and reactive to light, extra-ocular motions intact. Lids and lashes normal. Conjunctiva and sclera are non-icteric and not injected. Cornea within normal limits. Periorbital areas with no swelling, redness, or edema. ENT: Nares patent. No nasal discharge, no septal abnormalities noted. Tympanic membranes are normal and external auditory canals are clear. Oropharynx with no redness, swelling, or masses, exudates, or evidence of obstruction, uvula midline. Mucous membranes moist. Neck: Trachea midline, no thyromegaly or masses palpated, and no cervical lymphadenopathy. Supple, full range of motion without nuchal rigidity, or vertebral point tenderness. No Meningismus. Chest/axilla: Normal chest wall appearance and motion. Nontender with no deformity. No lesions are appreciated. Cardiovascular: Regular rate and rhythm with a normal S1 and S2. No gallops, murmurs, or rubs. Normal PMI, no JVD. No pulse deficits. Respiratory: Lungs have equal breath sounds bilaterally, clear to auscultation and percussion. No rales, rhonchi or wheezes noted. No increased work of breathing, no retractions or nasal flaring. Abdomen/GI: Soft, non-tender, with normal bowel sounds. No distension or tympany. No guarding or rebound. No evidence of tenderness throughout. Back: No spinal tenderness. No costovertebral tenderness. Full range of motion. Skin: Warm, dry with normal turgor. Normal color with no rashes, no lesions, and no evidence of cellulitis. MS/ Extremity: Pulses equal, no cyanosis. Neurovascular intact. Full, normal range of motion. Neuro: Awake and alert, GCS 15, oriented to person, place, time, and situation. Cranial nerves II-XII grossly intact. Motor strength 5/5 in all extremities. Sensory grossly intact. Cerebellar exam normal. Normal gait. Psych: Awake, alert, with orientation to person, place and time. Behavior, mood, and affect are within normal limits. 18:52 ECG was reviewed by the Attending Physician. kdr Vital Signs: 11:59 BP 139 / 84; Pulse 71; Resp 17; Temp 99.0(TE); Pulse Ox 99% on R/A; Weight 77.11 kg; ss Height 5 ft. 9 in. (175.26 cm); Pain 0/10; 14:05 BP 195 / 113; Pulse 70; Resp 18; Pulse Ox 98% on R/A; vc 14:30 BP 200 / 115; Pulse 67; Resp 17; Pulse Ox 99% ; vc 15:00 BP 192 / 118; Pulse 72; Resp 18; Pulse Ox 98% on R/A; vc 15:30 BP 174 / 107; Pulse 67; Resp 18; Pulse Ox 98% on R/A; vc 11:59 Body Mass Index 25.10 (77.11 kg, 175.26 cm) ss MDM: 14:18 Patient medically screened. snw 16:34 Data reviewed: vital signs, nurses notes. Data interpreted: Pulse oximetry: on room air snw is 98 %. Interpretation: normal. Counseling: I had a detailed discussion with the patient and/or guardian regarding: the historical points, exam findings, and any diagnostic results supporting the discharge/admit diagnosis, the presence of at least one elevated blood pressure reading (>120/80) during this emergency department visit, lab results, the need for outpatient follow up, to return to the emergency department if symptoms worsen or persist or if there are any questions or concerns that arise at home. Special discussion: I have referred the patient to see his PCP for further evaluation of high blood pressure. Based on the history and exam findings, there is no indication for further emergent testing or inpatient evaluation. I discussed with the patient/guardian the need to see the primary care provider for further evaluation of the symptoms. 10/31 12:07 Order name: BMP; Complete Time: 12:57 ss 10/31 14:49 Order name: Chem 7; Complete Time: 16:17 snw 10/31 12:54 Order name: EKG Strip; Complete Time: 13:26 ss 10/31 12:54 Order name: IV Start; Complete Time: 13:26 ss 10/31 12:54 Order name: Cardiac monitoring; Complete Time: 12:54 ss 10/31 14:48 Order name: Misc. Order: stop potassium, redraw Chem 7 2nd to BP trending up; Complete snw Time: 14:54 EC:52 Rate is 64 beats/min. Rhythm is regular, Sinus Rhythm with No ectopy, Right bundle kdr branch block. QRS [place] is Normal. MS interval is normal. QRS interval is normal. QT interval is normal. Clinical impression: NSR w/ Non-specific ST/T Changes. Administered Medications: 12:53 Drug: Potassium Effervescent Tablet 50 mEq Route: PO; ss 13:26 Drug: Potassium Chloride 20 mEq Route: IV; Rate: calculated rate; Site: right forearm; ss Disposition: 18:55 Co-signature as Attending Physician, Julio C Burnette MD I agree with the assessment and kdr plan of care. Disposition: 11/01/19 16:28 Discharged to Home. Impression: Hypokalemia. - Condition is Stable. - Discharge Instructions: Potassium Content of Foods, Hypokalemia, Rehydration, Elderly. - Medication Reconciliation Form, Thank You Letter, Antibiotic Education, Prescription Opioid Use form. - Follow up: Ammy Chew MD; When: 1 - 2 days; Reason: Recheck today's complaints, Continuance of care, Re-evaluation by your physician. Follow up: Alicia Armijo MD; When: 1 - 2 days; Reason: Recheck today's complaints, Continuance of care. - Notes: If diastolic blood pressure (bottom number) is above 80 tonight, do not take Midodrine for the evening. Signatures: Dispatcher [employer] EDSC Julio C Burnette MD MD kdr Waters, Shelly, SUPERVISOR VENEER-C SUPERVISOR VENEER-Csnw Vesta Alvarado RN RN ss Jennifer Bernard RN RN vc Corrections: (The following items were deleted from the chart) 17:04 16:28 11/01/2019 16:28 Discharged to Home. Impression: Hypokalemia. Condition is vc Stable. Forms are Medication Reconciliation Form, Thank You Letter, Antibiotic Education, Prescription Opioid Use. Follow up: Ammy Chew; When: 1 - 2 days; Reason: Recheck today's complaints, Continuance of care, Re-evaluation by your physician. Follow up: Alicia Armijo; When: 1 - 2 days; Reason: Recheck today's complaints, Continuance of care. snw
--- NOTE | 2019-11-01 16:29 | ER ---
Nurse's Notes [facility] Name: Jacob Vega Age: 79 yrs Sex: Male : 1940 Arrival Date: 11/01/2019 Time: 11:36 Bed 20 Private MD: Ammy Chew Diagnosis: Hypokalemia Presentation: 10/31 11:59 Chief complaint: Patient states: Sent by Dr. Briggs for low K+. Pt reports he had ss labs drawn yesterday and his home health nurse told him his potassium level was 2.5 and to come to come to ER for further evaluation and treatment. Coronavirus screen: Proceed with normal triage. Patient denies a cough. Patient denies shortness of breath or difficulty breathing. Patient denies measured and/or subjective temperature greater than 100.4F prior to today's visit. Patient denies travel on a cruise ship or to a country the [facility] currently lists as an affected area. Patient denies contact with known and/or suspected case of COVID-19. Ebola Screen: Patient denies exposure to infectious person. Patient denies travel to an Ebola-affected area in the 21 days before illness onset. Initial Sepsis Screen: Does the patient meet any 2 criteria? No. Patient's initial sepsis screen is negative. Does the patient have a suspected source of infection? No. Patient's initial sepsis screen is negative. Risk Assessment: Do you want to hurt yourself or someone else? Patient reports no desire to harm self or others. Onset of symptoms is unknown. 11:59 Method Of Arrival: Wheelchair 11:59 Acuity: LORE 3 ss Historical: - Allergies: 12:02 Lincocin; ss - PMHx: 12:02 hypotension; Hypothyroidism; ss - PSHx: 12:02 Cholecystectomy; ss - Immunization history:: Adult Immunizations up to date. - Social history:: Smoking status: Patient denies any tobacco usage or history of. Screenin:40 Abuse screen: Denies threats or abuse. Denies injuries from another. Nutritional ss screening: No deficits noted. Tuberculosis screening: Never had TB. Fall Risk None identified. Assessment: 12:17 Reassessment: BMP drawn and sent in triage. Awaiting results. Pt placed back in [facility] and notified of wait time. 12:40 General: Appears in no apparent distress. comfortable, Behavior is calm, cooperative, ss Denies fever, feeling ill, fatigue, chills. Pain: Denies pain. Neuro: Level of Consciousness is awake, alert, obeys commands, Oriented to person, place, time, situation. Cardiovascular: Capillary refill < 3 seconds is brisk in bilateral fingers. Cardiovascular: Rhythm is sinus rhythm. Respiratory: Airway is patent Respiratory effort is even, unlabored, Respiratory pattern is regular, symmetrical. GI: Patient currently denies abdominal pain, diarrhea, nausea, vomiting. : No signs and/or symptoms were reported regarding the genitourinary system. EENT: Oral mucosa is moist. Throat is clear. Derm: Skin is intact, is healthy with good turgor, Skin is dry, Skin is pink, warm \T\ dry. normal. Musculoskeletal: Circulation, motion, and sensation intact. Range of motion: intact in all extremities, Swelling absent. 13:41 Reassessment: awaiting for infusion to complete. Call light remains within reach. ss 14:00 Reassessment: Patient appears in no apparent distress at this time. Patient and/or vc family updated on plan of care and expected duration. Pain level reassessed. Patient is alert, oriented x 3, equal unlabored respirations, skin warm/dry/pink. Patient denies pain at this time. 15:00 Reassessment: Patient appears in no apparent distress at this time. Patient and/or vc family updated on plan of care and expected duration. Pain level reassessed. Patient is alert, oriented x 3, equal unlabored respirations, skin warm/dry/pink. Patient denies pain at this time. 16:00 Reassessment: Patient appears in no apparent distress at this time. Patient and/or vc family updated on plan of care and expected duration. Pain level reassessed. Patient is alert, oriented x 3, equal unlabored respirations, skin warm/dry/pink. Patient denies pain at this time. 17:00 Reassessment: Patient appears in no apparent distress at this time. Patient and/or vc family updated on plan of care and expected duration. Pain level reassessed. Patient is alert, oriented x 3, equal unlabored respirations, skin warm/dry/pink. Patient denies pain at this time. Patient states feeling better. Vital Signs: 11:59 BP 139 / 84; Pulse 71; Resp 17; Temp 99.0(TE); Pulse Ox 99% on R/A; Weight 77.11 kg; ss Height 5 ft. 9 in. (175.26 cm); Pain 0/10; 14:05 BP 195 / 113; Pulse 70; Resp 18; Pulse Ox 98% on R/A; vc 14:30 BP 200 / 115; Pulse 67; Resp 17; Pulse Ox 99% ; vc 15:00 BP 192 / 118; Pulse 72; Resp 18; Pulse Ox 98% on R/A; vc 15:30 BP 174 / 107; Pulse 67; Resp 18; Pulse Ox 98% on R/A; vc 11:59 Body Mass Index 25.10 (77.11 kg, 175.26 cm) ss ED Course: 11:36 Patient arrived in ED. ag5 11:37 Ammy Chew MD is Private Physician. ag5 12:01 Triage completed. ss 12:02 Arm band placed on right wrist. ss 12:53 Vesta Alvarado, SAMANTHA is Primary Nurse. ss 12:57 Esther Garcia FNP-C is [facility]. snw 12:57 Julio C Burnette MD is Attending Physician. snw 13:06 EKG done, by cathodic protection technician. reviewed by Julio C Burnette MD. at1 13:26 Inserted saline lock: 20 gauge in right wrist, using aseptic technique. Patient ss maintains SpO2 saturation greater than 95% on room air. 13:27 Patient has correct armband on for positive identification. Placed in gown. Bed in low ss position. Call light in reach. panel monitor on. Pulse ox on. NIBP on. Warm blanket given. 16:28 Ammy Chew MD is Referral Physician. snw 16:28 Alicia Armijo MD is Referral Physician. snw 17:00 No provider procedures requiring assistance completed. IV discontinued, intact, vc bleeding controlled, No redness/swelling at site. Pressure dressing applied. Administered Medications: 12:53 Drug: Potassium Effervescent Tablet 50 mEq Route: PO; ss 13:26 Drug: Potassium Chloride 20 mEq Route: IV; Rate: calculated rate; Site: right forearm; ss Outcome: 16:28 Discharge ordered by . snw 17:04 Patient left the ED. vc 21:52 Discharged to home ambulatory. vc 21:52 Condition: good 21:52 Discharge instructions given to patient, Instructed on discharge instructions, follow up and referral plans. Demonstrated understanding of instructions, follow-up care. Signatures: Esther Garcia, ATOMIC PHYSICS PROFESSOR-C ATOMIC PHYSICS PROFESSOR-Csnw Vesta Alvarado RN RN ss [place], extrusion utility worker EKG Tat1 Deepak Chavarria ag5 Jennifer Bernard RN RN vc
[2019-11-01 17:17] VITALS: TEMP 99
[2019-11-01 17:21] VITALS: O2SAT 98
[2019-11-01 17:22] VITALS: BP 174/107
== END 2019-11-01 17:04 | disposition home or self-care (01) ==
LOC: ER 11:34
DX: E87.6 Hypokalemia (principal); I95.9 Hypotension, unspecified; Z88.1 Allergy status to other antibiotic agents
CPT/HCPCS: 93005; 80048 ×2; 36415; 96374; 99285; J3480

== ENCOUNTER 2019-11-12 09:34 | Emergency (ER) | payer OTHER ==
--- NOTE | 2019-11-12 11:30 | ER ---
Nurse's Notes [facility] Name: Jacob Vega Age: 79 yrs Sex: Male : 1940 Arrival Date: 11/12/2019 Time: 09:40 Bed 16 Private MD: Diagnosis: Retention of urine Presentation: 11/11 09:48 Chief complaint: Patient states: Unable to urinate since yesterday evening. Pt reports ss Dr. Canales did a TURP in November of last year, but states that his trouble with urination has been getting progressively worse since then. Coronavirus screen: Patient denies a cough. Patient denies shortness of breath or difficulty breathing. Patient denies measured and/or subjective temperature greater than 100.4F prior to today's visit. Patient denies travel on a cruise ship or to a country the [facility] currently lists as an affected area. Patient denies contact with known and/or suspected case of COVID-19. Proceed with normal triage. Ebola Screen: Patient denies exposure to infectious person. Patient denies travel to an Ebola-affected area in the 21 days before illness onset. Initial Sepsis Screen: Does the patient meet any 2 criteria? No. Patient's initial sepsis screen is negative. Does the patient have a suspected source of infection? No. Patient's initial sepsis screen is negative. Risk Assessment: Do you want to hurt yourself or someone else? Patient reports no desire to harm self or others. Onset of symptoms was November 11, 2019. 09:48 Method Of Arrival: Wheelchair 09:48 Acuity: LORE 3 ss Historical: - Allergies: 09:50 Lincocin; ss - PMHx: 09:50 hypotension; Hypothyroidism; ss - PSHx: 09:50 Cholecystectomy; ss - Immunization history:: Adult Immunizations up to date. - Social history:: Smoking status: Patient denies any tobacco usage or history of. Screenin:00 Abuse screen: Denies threats or abuse. Denies injuries from another. Nutritional ph screening: No deficits noted. Tuberculosis screening: No symptoms or risk factors identified. Fall Risk None identified. Assessment: 10:15 General: Appears in no apparent distress. uncomfortable, Behavior is calm, cooperative, ph appropriate for age, Denies fever. Pain: Complains of pain in suprapubic area. Neuro: Level of Consciousness is awake, alert, obeys commands, Oriented to person, place, time, situation. Cardiovascular: Capillary refill < 3 seconds in bilateral fingers Patient's skin is warm and dry. Respiratory: Airway is patent Respiratory effort is even, unlabored, Respiratory pattern is regular, symmetrical. : Reports inability to void. Derm: Skin is intact, is healthy with good turgor, Skin is pink, warm \T\ dry. 11:30 Reassessment: Patient appears in no apparent distress at this time. Patient and/or ph family updated on plan of care and expected duration. Pain level reassessed. Patient is alert, oriented x 3, equal unlabored respirations, skin warm/dry/pink. 12:30 Reassessment: Patient appears in no apparent distress at this time. Patient and/or ph family updated on plan of care and expected duration. Pain level reassessed. Patient is alert, oriented x 3, equal unlabored respirations, skin warm/dry/pink. Vital Signs: 09:48 BP 169 / 104; Pulse 71; Resp 16; Temp 97.5(TE); Pulse Ox 100% on R/A; Weight 77.11 kg; ss Height 5 ft. 9 in. (175.26 cm); Pain 4/10; 11:30 BP 148 / 95; Pulse 68; Resp 18; Temp 97.6; Pulse Ox 99% on R/A; ph 09:48 Body Mass Index 25.10 (77.11 kg, 175.26 cm) ED Course: 09:40 Patient arrived in ED. fj1 09:49 Triage completed. 09:50 Arm band placed on right wrist. ss 10:17 Pantera Melgar MD is Attending Physician. roman 10:30 Patient has correct armband on for positive identification. Placed in gown. Bed in low ph position. Call light in reach. Side rails up X 1. Pulse ox on. NIBP on. Door closed. Noise minimized. Warm blanket given. 10:45 Sophia Reece RN is Primary Nurse. ph 11:15 Justice cath inserted, using sterile technique, [address], balloon inflated, to ph gravity drainage, urine specimen collected. returned clear yellow urine. Patient tolerated well. Coude catheter inserted, attached to leg bag. 11:29 Josh Canales MD is Referral Physician. roman 12:40 No provider procedures requiring assistance completed. Patient did not have IV access ph during this emergency room visit. Administered Medications: 12:36 Drug: Cipro 500 mg Route: PO; ll1 12:45 Follow up: Response: No adverse reaction ph Outcome: 11:29 Discharge ordered by . [facility] 12:42 Patient left the ED. ll1 12:42 Discharged to home ambulatory. ph 12:42 Condition: improved 12:42 Discharge instructions given to patient, Instructed on discharge instructions, follow up and referral plans. medication usage, Demonstrated understanding of instructions, follow-up care, medications, Prescriptions given X 2. Signatures: Pantera Melgar MD MD cha Smirch, Shelby, RN RN Sophia Mendoza RN RN Fede Song [facility] Mattie Mendez RN RN [facility]
--- NOTE | 2019-11-12 11:30 | EDPHYS ---
Physician Documentation [facility] Name: Jacob Vega Age: 79 yrs Sex: Male : 1940 Arrival Date: 11/12/2019 Time: 09:40 Bed 16 Private MD: ED Physician Pantera Melgar HPI: 11/11 11:17 This 79 yrs old Male presents to ER via Wheelchair with complaints of Urinary roman Retention. 11:17 The patient presents with urinary symptoms, retention, unable to void. Onset: The roman symptoms/episode began/occurred 2 day(s) ago. Modifying factors: The symptoms are alleviated by nothing, the symptoms are aggravated by nothing. Associated signs and symptoms: The patient has no apparent associated signs or symptoms. Severity of symptoms: At their worst the symptoms were mild, in the emergency department the symptoms are unchanged. The patient has experienced similar episodes in the past, multiple times. Historical: - Allergies: 09:50 Lincocin; ss - PMHx: 09:50 hypotension; Hypothyroidism; ss - PSHx: 09:50 Cholecystectomy; ss - Immunization history:: Adult Immunizations up to date. - Social history:: Smoking status: Patient denies any tobacco usage or history of. ROS: 11:19 Constitutional: Negative for fever, chills, and weight loss, Eyes: Negative for injury, roman pain, redness, and discharge, ENT: Negative for injury, pain, and discharge, Neck: Negative for injury, pain, and swelling, Cardiovascular: Negative for chest pain, palpitations, and edema, Respiratory: Negative for shortness of breath, cough, wheezing, and pleuritic chest pain, Back: Negative for injury and pain, MS/Extremity: Negative for injury and deformity, Skin: Negative for injury, rash, and discoloration, Neuro: Negative for headache, weakness, numbness, tingling, and seizure, Psych: Negative for depression, anxiety, suicide ideation, homicidal ideation, and hallucinations, Allergy/Immunology: Negative for hives, rash, and allergies, Endocrine: Negative for neck swelling, polydipsia, polyuria, polyphagia, and marked weight changes, Hematologic/Lymphatic: Negative for swollen nodes, abnormal bleeding, and unusual bruising. 11:19 Abdomen/GI: Positive for abdominal pain, of the suprapubic area. 11:19 : Positive for urinary symptoms, urinary frequency, difficulty urinating. Exam: 11:19 Constitutional: This is a well developed, well nourished patient who is awake, alert, roman and in no acute distress. Head/Face: Normocephalic, atraumatic. Eyes: Pupils equal round and reactive to light, extra-ocular motions intact. Lids and lashes normal. Conjunctiva and sclera are non-icteric and not injected. Cornea within normal limits. Periorbital areas with no swelling, redness, or edema. ENT: Nares patent. No nasal discharge, no septal abnormalities noted. Tympanic membranes are normal and external auditory canals are clear. Oropharynx with no redness, swelling, or masses, exudates, or evidence of obstruction, uvula midline. Mucous membranes moist. Neck: Trachea midline, no thyromegaly or masses palpated, and no cervical lymphadenopathy. Supple, full range of motion without nuchal rigidity, or vertebral point tenderness. No Meningismus. Chest/axilla: Normal chest wall appearance and motion. Nontender with no deformity. No lesions are appreciated. Cardiovascular: Regular rate and rhythm with a normal S1 and S2. No gallops, murmurs, or rubs. Normal PMI, no JVD. No pulse deficits. Respiratory: Lungs have equal breath sounds bilaterally, clear to auscultation and percussion. No rales, rhonchi or wheezes noted. No increased work of breathing, no retractions or nasal flaring. Back: No spinal tenderness. No costovertebral tenderness. Full range of motion. Skin: Warm, dry with normal turgor. Normal color with no rashes, no lesions, and no evidence of cellulitis. MS/ Extremity: Pulses equal, no cyanosis. Neurovascular intact. Full, normal range of motion. Neuro: Awake and alert, GCS 15, oriented to person, place, time, and situation. Cranial nerves II-XII grossly intact. Motor strength 5/5 in all extremities. Sensory grossly intact. Cerebellar exam normal. Normal gait. Psych: Awake, alert, with orientation to person, place and time. Behavior, mood, and affect are within normal limits. 11:19 Abdomen/GI: Inspection: distension, Bowel sounds: normal, Palpation: mild abdominal tenderness, in the suprapubic area, Liver: no appreciated palpable abnormalities, Hernia: not appreciated. Vital Signs: 09:48 BP 169 / 104; Pulse 71; Resp 16; Temp 97.5(TE); Pulse Ox 100% on R/A; Weight 77.11 kg; ss Height 5 ft. 9 in. (175.26 cm); Pain 4/10; 11:30 BP 148 / 95; Pulse 68; Resp 18; Temp 97.6; Pulse Ox 99% on R/A; ph 09:48 Body Mass Index 25.10 (77.11 kg, 175.26 cm) Procedures: 11:19 Justice cath inserted by myself - Urine output = 500 ml's. Patient tolerated well. roman MDM: 10:40 Patient medically screened. [facility] 11:21 Data reviewed: vital signs, nurses notes, lab test result(s), urinalysis. [facility] 11:27 Differential diagnosis: nonspecific abdominal pain, urinary retention, Justice catheter roman problem, prostatitis, urethritis. Data interpreted: desk monitor: rate is 71 beats/min, rhythm is regular, Pulse oximetry: on room air is 100 %. Counseling: I had a detailed discussion with the patient and/or guardian regarding: the historical points, exam findings, and any diagnostic results supporting the discharge/admit diagnosis, the need for outpatient follow up, for definitive care, a urologist. ED course: pt will follow up dr canales, his urologist. 11/11 11:16 Order name: Urine Culture [facility] 11/11 11:54 Order name: Urine Dipstick--Ancillary (enter results) ca 11/11 10:59 Order name: Bladder Scanner; Complete Time: 12:17 11/11 10:59 Order name: Justice; Complete Time: 12:17 11/11 11:16 Order name: Justice Leg Bag; Complete Time: 12:17 [facility] 11/11 11:16 Order name: Urine Dipstick-Ancillary (obtain specimen); Complete Time: 12:17 [facility] Administered Medications: 12:36 Drug: Cipro 500 mg Route: PO; ll1 12:45 Follow up: Response: No adverse reaction ph Disposition: 11/12/19 11:29 Discharged to Home. Impression: Retention of urine. - Condition is Stable. - Discharge Instructions: Justice Catheter Care, Adult, Acute Urinary Retention, Male, [id number], Justice Catheter Care, Adult, [id number]. - Prescriptions for Cipro 250 mg Oral Tablet - take 1 tablet by ORAL route every 12 hours; 14 tablet. Flomax 0.4 mg Oral Capsule, Sust. Release 24 hr - take 1 capsule by ORAL route once daily 1/2 hour following the same meal each day; 30 capsule. - Medication Reconciliation Form, Thank You Letter, Antibiotic Education, Prescription Opioid Use form. - Follow up: Josh Canales MD; When: 2 - 3 days; Reason: Recheck today's complaints, Continuance of care, Re-evaluation by your physician. - Problem is new. - Symptoms have improved. Signatures: Dispatcher [employer] EDMS Pantera Melgar MD MD cha Smirch, Shelby, RN RN Sophia Reece RN RN Mattie Mendez RN RN ll1 Corrections: (The following items were deleted from the chart) 12:42 11:29 11/12/2019 11:29 Discharged to Home. Impression: Retention of urine. Condition is ll1 Stable. Forms are Medication Reconciliation Form, Thank You Letter, Antibiotic Education, Prescription Opioid Use. Follow up: Josh Canales; When: 2 - 3 days; Reason: Recheck today's complaints, Continuance of care, Re-evaluation by your physician. Problem is new. Symptoms have improved. roman
[2019-11-12 12:02] LABS: Urine Blood 3+ (NEG); Urine Glucose NEGATIVE (NEG); Urine Protein 3+ (NEG); Urine Specific Gravity 1.025 (1.005-1.030)
[2019-11-12] MEDS ORDERED: CIPROFLOXACIN HCL 500 MG TAB ONE (12:23)
[2019-11-12 12:51] VITALS: BP 169/104; TEMP 97.5; O2SAT 100
== END 2019-11-12 12:42 | disposition home or self-care (01) ==
LOC: ER 09:34
DX: R33.9 Retention of urine, unspecified (principal); Z88.8 Allergy status to other drugs, medicaments and biological substances
CPT/HCPCS: 51702; 81003; 87086; 87088; 99284